=== PATIENT | male | born 1955 | race Caucasian/White ===

== ENCOUNTER 2023-03-11 09:13 | Outpatient (AMB) | payer MEDICARE, OTHER, SELFPAY ==
--- NOTE | 2023-03-11 09:12 | MHC.OFFWIV ---
Intake Vital Signs 03/11/23 09:14 Height 5 ft 9 in Weight 290 lb BMI 42.8 BP 134/72 Blood Pressure Location Lt femoral Position Sitting Pulse 87 Pulse Source Pulse Oximeter Temp 97.7 F Temp Source Temporal Artery Scan Pulse Oximetry (%) 96 Oxygen Delivery Method Room Air Intake Visit Reasons: EST/cellulitis both legs Intake Note: Pt is here c/o bilateral leg cellulitis. Patient Tobacco Use Status: Never used Tobacco Information Interpreted: non-clinical & clinical Allergies No Known Allergies Allergy (Verified 03/11/23 09:12) Do you need a note to return to daycare/school/sports/work: No HPI HPI Comments History of Present Illness Details This is a 67-year-old male with past medical history of hypertension hyperlipidemia presenting for evaluation of red lesions on his lower legs that are burning and present for the past 3 days. Patient denies taking any new medications and denies any systemic symptoms such as fevers, chills, lightheadedness or difficulty ambulating. Patient has not taken any medication for treatment of this burning sensation. PFSH Social History Patient Tobacco Use Status: Never used Tobacco Review of Systems Const Denies chills, Denies fatigue and Denies fever(s) Musc Reports no additional complaints Skin/Breast Reports as per HPI, Reports pruritus, Reports non-healing lesions and Reports other (burning lesions distal lower extremities) Neuro Reports burning sensations (distal lower extremities bilaterally) Endo Denies fatigue Physical Exam Vital Signs: Last Vital Signs Temp 97.7 F 03/11/23 09:14 Pulse 87 03/11/23 09:14 BP 134/72 03/11/23 09:14 Pulse Ox 96 03/11/23 09:14 Oxygen Delivery Method Room Air 03/11/23 09:14 BMI result Body Mass Index 42.8 Patient is afebrile. Const General: cooperative, healthy appearing, comfortable and no acute distress Nutritional Appearance: obese Orientation/consciousness: patient oriented x3 Limitations: no limitations Skin General skin exam: dry skin Lesions: lesion noted (individual erythematous macules, papules, pustules measuring 0.5 - 1.25cm ) located circumferentially distal lower extremities bilaterally , bilateral lower leg size (0.5-1.25 cm), borders well-defined, color violaceous and other (erythematous); no blanching, consistency, morphology annular, surface no blanching and tender Neuro General: patient oriented x3 Extrem Other: Ambulating independently; ankle ROM and knee ROM intact on examination bilaterally Psych Appearance: grossly normal Mental Status: mental status grossly normal Insight: Good insight present (Psych) Judgement: Good judgement present (Psych) Assessment & Plan Assessment & Plan (1) Vasculitis: Code(s): I77.6 - Arteritis, unspecified Plan: Prednisone taper over 9 days; patient is encouraged to follow-up with his PCP in 7-10 days and use Tylenol only as needed for any discomfort in addition to the prednisone. Medications: New prednisone 20 mg orally 60mg x 3 days, 40mg x 3 days, 20mg x 3 days; 18 tabs 0RF Coding Level of Care Code New Pt Level 3 (44743) Diagnoses Vasculitis I77.6 Time Spent (min) 25
[2023-03-11 09:14] VITALS: BP 134/72; PULSE 87; TEMP 36.5; O2SAT 96; BMI 42.8
== END 2023-03-11 09:49 | disposition home or self-care (01) ==
PROVIDERS: PCP Internal Medicine Endocrinology, Diabetes & Metabolism; Visit Provider Physician Assistant
DX: I77.6 Arteritis, unspecified (principal)
CPT/HCPCS: 99203